=== PATIENT | male | born 1940 | race Caucasian/White ===

== ENCOUNTER 2016-09-06 18:32 | Emergency (ER) | payer MEDICARE, BC ==
[2016-09-06] MEDS ORDERED: NORMAL SALINE 500 ML IV ONE ×3 (19:04→19:47)
[2016-09-06 19:11] LABS: BASOPHIL# 0.1 X 10^3uL (0.0-0.1); BASOPHILS 0.8 % (0.0-2.0); EOSINOPHILS 2.1 % (0.0-6.0); EOSINOPHILS# 0.2 X 10^3uL (0.0-0.4); HEMATOCRIT 46.5 % (42.0-54.0); MEAN CELL VOLUME 88.2 fL (80.0-100.0); MEAN CORPUS. HGB CONCENTRATION 34.5 g/dL (32.0-36.0); MEAN CORPUSCULAR HEMOGLOBIN 30.4 pg (29.0-35.0); MEAN PLATELET VOLUME 9.5 fL (7.4-10.4); MONOCYTES 6.2 % (2.0-10.0); MONOCYTES# 0.6 X 10^3uL (0.2-1.0); NEUTROPHILS 69.9 % (54.0-75.0); NEUTROPHILS# 6.6 X 10^3uL (2.6-6.7); PLATELET COUNT 282 X 10^3uL (130-440); RED BLOOD COUNT 5.28 X 10^6uL (4.20-6.10); RED CELL DISTRIBUTION WIDTH 13.1 % (11.5-14.5); WHITE BLOOD COUNT 9.4 X 10^3uL (3.9-10.7)
[2016-09-06 19:54] LABS: BLOOD UREA NITROGEN 11 mg/dL (9-20); CALCIUM 8.9 mg/dL (8.4-10.2); CHLORIDE 107 mmol/L (98-107); EST GLOMERULAR FILTRATION RATE > 60 mL/min; GLUCOSE 114 mg/dL (70-100); POTASSIUM 3.9 mmol/L (3.5-5.1); SODIUM 141 mmol/L (137-145)
[2016-09-06 20:06] LABS: TROPONIN I < 0.012 ng/mL (0.00-0.034)
--- NOTE | 2016-09-06 20:16 | ER NURSING DOCUMENTATION ---
Nurse's Notes [facility] Name:Pineda Yeung Jr Age:76 yrs Sex:Male :1940 Arrival Date:09/06/2016 Time:18:32 Bed4 Private MD:Juan Manuel Masters Diagnosis:Dehydration;Near Syncope: Postural Presentation: 09/06 18:43 Acuity: SAMUEL 2 st 18:47 Presenting complaint: Patient states: Pt states that he had a sudden onset of dizziness st and nausea about an hour ago that has continued. Transition of care: Home. 18:47 Method Of Arrival: Private Vehicle st Triage Assessment: 18:48 General: Appears in no apparent distress, Behavior is cooperative. Pain: Denies pain. st EENT: Oral mucosa is dry. Neuro: Level of Consciousness is awake, alert, Oriented to person, place, time, event, Machine Packer are equal bilaterally Moves all extremities. Gait is steady. Cardiovascular: Capillary refill < 3 seconds Heart tones present Pulses are palpable in right radial artery and left radial artery Reports lightheadedness, Rhythm is sinus rhythm. Respiratory: No deficits noted. GI: Abdomen is flat, non- distended Abd is soft and non tender X 4 quads. Reports diarrhea, nausea, vomiting. Historical: - Allergies: No known drug Allergies; - Home Meds: 1. Flomax Oral - PSHx: Cholecysectomy; - Tetanus: < 10 years. - Ebola Screening: : Patient denies exposure to infectious person. Patient denies travel to an Ebola-affected area in the 21 days before illness onset. . - Immunization history: Pneumococcal vaccine is up to date, Flu Vaccine < 1 year. - Social history: Smoking status: Patient states former smoker of tobacco. Patient/guardian denies using alcohol, marijuana. Screenin:49 Infectious Disease Risk None. Abuse screen: Denies threats or abuse. Denies injuries st from another. pt feels safe at home. Nutritional screening: No deficits noted. Vital Signs: 18:49 BP 156 / 86; Pulse 75; Resp 18; Temp 98.2; Pulse Ox 92% on R/A; Pain 0/10; st 19:59 Pulse 75 MON; Resp 23; Pulse Ox 92% ; lp ED Course: 18:38 EKG done per protocol. Performed by ED Staff. Shown to ED physician. st 18:41 Patient arrived in ED. jl 18:41 Juan Manuel Masters MD is Private Physician. jl 18:43 Olivia Arechiga RN is Primary Nurse. st 18:[address] 18:49 Valuables Remains with patient Patient has correct armband on for positive st identification. Bed in low position. Cardiac Monitoring On for Nurse Monitoring only. Pulse Ox - RN Monitoring Only NIBP On - RN Monitoring Only. 19:20 Liborio Hsu MD is Attending Physician. cd 19:31 EKG attached lp 20:09 Juan Manuel Masters MD is Referral Physician. cd 20:10 Discontinued IV intact, bleeding controlled, pressure dressing applied, No sc1 redness/swelling at site. Administered Medications: 18:53 Drug: NS 0.9% 500 ml; Route: IV; Rate: bolus; Site: left antecubital; st 19:14 Follow up: IV Status: Completed infusion; IV Intake: 500ml lp 19:14 Drug: NS 0.9% 500 ml; Route: IV; Rate: bolus; Site: left antecubital; lp 19:35 Follow up: Response: No adverse reaction; IV Status: Completed infusion; IV Intake: lp 500ml 19:36 Drug: NS 0.9% 500 ml; Route: IV; Rate: bolus; Site: left antecubital; lp 20:11 Follow up: Response: No adverse reaction; No change in condition; IV Status: Completed lp infusion; IV Intake: 500ml Point of Care Testing: Urine Dip: 19:43 pH: 7.0; ; Specific [place]: 1.015; Ketones: Negative; Glucose: Negative; Protein: lp Positive (+); Leukocytes: Negative; Nitrite: Negative ; Blood: Negative; Bilirubin: Negative ; Urobilinogen: Normal Intake: 19:14 IV: 500ml; Total: 500ml. lp 19:35 IV: 500ml; Total: 1000ml. lp 20:11 IV: 500ml; Total: 1500ml. lp Outcome: 20:10 Discharge ordered by . cd 20:10 Discharged to home ambulatory. lp 20:10 Condition: improved 20:10 Instructed on discharge instructions, follow up and referral plans. 20:15 Patient left the ED. lp 09/07 14:57 Discharge F/U Call: Unable to reach: non-working number 14:[phone] Discharge F/U Call: Spoke with: patient. other: Name: pt states he is not 100% but he st is feeling much better. pt has no questions or concerns. Signatures: Olivia Arechiga, RN Ginny Segundo RN RN ca1 Анна Duarte RN RN Liborio Allison MD MD cd Lietz, Jeff jl
--- NOTE | 2016-09-06 20:16 | ER PHYSICIAN DOCUMENTATION ---
Physician Documentation [facility] Name:Pineda Yeung Jr Age:76 yrs Sex:Male :1940 Arrival Date:09/06/2016 Time:18:32 Bed4 Private MD:Juan Manuel Masters ED, Chris Disposition: 09/06/16 20:10 Discharged to Home/Self Care. Impression: Dehydration, Near Syncope: Postural. - Condition is Good. - Discharge Instructions: DEHYDRATION (8y-Adult), DIZZINESS, Unk Cause. - Medical Reconciliation form form. - Follow up: Juan Manuel Masters MD; When: 7 - 10 days; Reason: Worsening of condition, Recheck today's complaints, Continuance of care. - Problem is new. - Symptoms are resolved. - Notes: Drink 2 - 3 quarts of water every day. Stay out of sun for 3 days. HPI: 09/06 19:00 This 76 yrs old Male presents to ER via Private Vehicle with complaints of cd Dizziness and lightheadedness. 19:00 The patient presents with generalized weakness, lightheadedness. Onset: The cd symptom(s)/episode began/occurred acutely, just prior to arrival. Context: occurred at home, occurred while the patient was sitting, just prior to the episode the patient experienced lightheadedness. Associated signs and symptoms: Pertinent negatives: abdominal pain, chest pain, confusion, diaphoresis, head injury, headache, nausea, palpitations, shortness of breath, syncope, vomiting. Severity of symptoms: At their worst the symptoms were moderate in the emergency department the symptoms have improved mildly. The patient has not experienced similar symptoms in the past. Historical: - Allergies: No known drug Allergies; - Home Meds: 1. Flomax Oral - PSHx: Cholecysectomy; - Tetanus: < 10 years. - Ebola Screening: : Patient denies exposure to infectious person. Patient denies travel to an Ebola-affected area in the 21 days before illness onset. . - Immunization history: Pneumococcal vaccine is up to date, Flu Vaccine < 1 year. - Social history: Smoking status: Patient states former smoker of tobacco. Patient/guardian denies using alcohol, marijuana. ROS: 19:00 Eyes: Negative for injury, pain, redness, discharge, blurry vision and loss of vision. cd ENT: Negative for injury, pain, epistaxis and discharge. Neck: Negative for injury, pain, stiffness and swelling. Cardiovascular: Negative for chest pain, palpitations, edema and pleuritic pain. Respiratory: Negative for shortness of breath, dyspnea on exertion, cough, sputum production, wheezing, hemoptysis and pleuritic chest pain. Abdomen/GI: Negative for abdominal pain, nausea, vomiting, diarrhea, constipation, distension, melena, hematochezia and hematemesis. Back: Negative for injury, pain or muscle spasms. MS/Extremity: Negative for injury, deformity, edema, calf tenderness, pain or coldness. Skin: Negative for injury, rash, itching and discoloration. 19:00 Neuro: Negative for headache, numbness, tingling, and seizure. cd 19:00 Constitutional: Positive for poor PO intake, Negative for body aches, chills, fever. 19:00 Neuro: Positive for near syncope, Negative for altered mental status, loss of consciousness. Exam: Eyes: Pupils equal round and reactive to light, extra-ocular motions intact. Lids and lashes normal. Conjunctiva and sclera are non-icteric and not injected. Cornea within normal limits. Periorbital areas with no swelling, redness, or edema. ENT: Nares patent. No nasal discharge, no septal abnormalities noted. Tympanic membranes are normal and external auditory canals are clear. Oropharynx with no redness, swelling, or masses, exudates, or evidence of obstruction, uvula midline. Mucous membranes dry Neck: Trachea midline, no thyromegaly or masses palpated, and no cervical lymphadenopathy. Supple, full range of motion without nuchal rigidity, or vertebral point tenderness. No Meningismus. Cardiovascular: Regular rate and rhythm with a normal S1 and S2. No gallops, murmurs, or rubs. Normal PMI, no JVD. No pulse deficits. Respiratory: Lungs have equal breath sounds bilaterally, clear to auscultation and percussion. No rales, rhonchi or wheezes noted. No increased work of breathing, no retractions or nasal flaring. Abdomen/GI: Soft, non-tender, with normal bowel sounds. No distension or tympany. No guarding or rebound. No evidence of tenderness throughout. Skin: Warm, dry with normal turgor. Normal color with no rashes, no lesions, and no evidence of cellulitis. MS/ Extremity: Pulses equal, no cyanosis. Neurovascular intact. Full, normal range of motion. 19:00 Neuro: Awake and alert, GCS 15, oriented to person, place, time, and situation. cd Cranial nerves II-XII grossly intact. Motor strength 5/5 in all extremities. Sensory grossly intact. Cerebellar exam normal. Normal gait. 19:00 Constitutional: The patient appears alert, awake, non-diaphoretic, non-toxic, well developed, well nourished. 19:00 Head/face: Noted is erythema, that is moderate, swelling, that is moderate, of the Patient states he reacts to the sunlight and becomes inflamed in spite of Sunscreen. 20:05 Neuro: Orientation: appropriate for stated age, to person, place & time. Mentation: is cd normal, Cranial nerves: CN II- XII are normal as tested, Cerebellar function: normal finger to nose testing, heel to tuttle testing is normal, the patient is unable to track heel to tuttle on both sides, Motor: is normal, Sensation: is normal, Gait: is steady. Vital Signs: 18:49 BP 156 / 86; Pulse 75; Resp 18; Temp 98.2; Pulse Ox 92% on R/A; Pain 0/10; st 19:59 Pulse 75 MON; Resp 23; Pulse Ox 92% ; lp MDM: 19:00 ECG:. cd 19:05 Data interpreted: Pulse oximetry: on room air is 92 %. Interpretation: normal. cd 19:10 Differential diagnosis: cardiac arrhythmia, hypovolemia, idiopathic dizziness, cd near-syncope. 19:20 Patient medically screened. cd 19:31 EKG attached lp 20:05 Data reviewed: vital signs, nurses notes, old medical records, lab test result(s), and cd as a result, I will discharge patient, administer IV fluids, NS bolus, NS maintenence. Counseling: I had a detailed discussion with the patient and/or guardian regarding: the historical points, exam findings, and any diagnostic results supporting the discharge/admit diagnosis, lab results, the need for outpatient follow up, for a recheck, with the patient's primary care provider, to return to the emergency department if symptoms worsen or persist or if there are any questions or concerns that arise at home. Response to treatment: the patient's symptoms have markedly improved after treatment, the patient's condition has returned to base line, the patient is now symptom free, patient is well hydrated. and as a result, I will discharge patient. 09/06 19:28 Order name: CBC AUTO DIF, MDIF/RMOR IF IND; Complete Time: 20:09 EDMS 09/06 20:09 Interpretation: Normal. 09/06 20:07 Order name: BASIC METABOLIC PANEL; Complete Time: 20:09 EDMS 09/06 20:09 Interpretation: Normal. 09/06 20:07 Order name: TROPONIN I; Complete Time: 20:09 EDMS 09/06 20:09 Interpretation: Normal. 09/06 18:46 Order name: EKG - 12 Lead; Complete Time: 18:46 st 09/06 18:46 Order name: Urine Dip; Complete Time: 20:11 st EC:00 Rate is 80 beats/min. Rhythm is regular. QRS [place] is Normal. PA interval is normal. QRS cd interval is prolonged. QT interval is normal. Clinical impression: NSR at 80/minute, RBBB, PVC. Interpreted by me. Dispensed Medications: 18:53 Drug: NS 0.9% 500 ml; Route: IV; Rate: bolus; Site: left antecubital; st 19:14 Follow up: IV Status: Completed infusion; IV Intake: 500ml lp 19:14 Drug: NS 0.9% 500 ml; Route: IV; Rate: bolus; Site: left antecubital; lp 19:35 Follow up: Response: No adverse reaction; IV Status: Completed infusion; IV Intake: lp 500ml 19:36 Drug: NS 0.9% 500 ml; Route: IV; Rate: bolus; Site: left antecubital; lp 20:11 Follow up: Response: No adverse reaction; No change in condition; IV Status: Completed lp infusion; IV Intake: 500ml Point of Care Testing: Urine Dip: 19:43 pH: 7.0; ; Specific [place]: 1.015; Ketones: Negative; Glucose: Negative; Protein: lp Positive (+); Leukocytes: Negative; Nitrite: Negative ; Blood: Negative; Bilirubin: Negative ; Urobilinogen: Normal Signatures: Olivia Arechiga RN RN st Pavlish, Lena, RN RN lp Daley, Chris, MD MD cd
== END 2016-09-06 20:16 | disposition home or self-care (01) ==
LOC: ER 18:32
DX: E86.0 Dehydration (principal); R55 Syncope and collapse; R53.1 Weakness; R42 Dizziness and giddiness; I45.10 Unspecified right bundle-branch block; I49.3 Ventricular premature depolarization; Z79.899 Other long term (current) drug therapy
CPT/HCPCS: 80048; 84484; 85025; 93005; 93010; 96360; 99283; J7040